=== PATIENT | female | born 1990 | race Caucasian/White ===

== ENCOUNTER 2023-12-06 21:12 | Emergency (ER) | payer OTHER, SELFPAY ==
[2023-12-06] MEDS: ZOFRAN 4 MG IV (21:42)
[2023-12-06 21:43] LABS: % Basophils 0.3 % (0-2); % Eosinophils 1.4 % (0-6); % Immature Granulocytes 0.2 % (0-0.5); % Lymphocytes 34.3 % (20.5-51.1); % Monocytes 5.5 % (1.7-9.3); % Neutrophils 58.3 % (42.2-75.2); Absolute Eosinophils 0.1 10^3/uL (0-0.7); Absolute Lymphocytes 2.9 10^3/uL (1.2-3.4); Absolute Monocytes 0.5 10^3/uL (0.1-0.6); Hematocrit 39.9 % (37.0-47.0); Hemoglobin 14.1 g/dL (12.0-16.0); Mean Corp Hgb Conc. 35.3 g/dL (33.0-37.0); Mean Corpuscular Hgb 30.9 pg (27.0-31.0); Mean Corpuscular Volume 87.5 fL (81.0-99.0); Mean Platelet Volume 8.6 fL (7.4-10.4); Nucleated Red Blood Cells % 0 %; Platelet Count 307 10^3/uL (130-400); Red Blood Cell Count 4.56 10^6/uL (4.20-5.40); Red Cell Dist. Width 12.1 % (11.5-14.5); White Blood Cell Count 8.6 10^3/uL (4.8-10.8)
[2023-12-06] MEDS: TORADOL 15 MG IV (21:43)
[2023-12-06 21:55] LABS: HCG, Serum Qualitative Screen Negative
[2023-12-06 22:00] LABS: ALT (SGPT) 16 U/L (0-35); AST (SGOT) 20 U/L (14-36); Albumin 4.3 g/dl (3.5-5.0); Alkaline Phosphatase 54 U/L (38-126); Blood Urea Nitrogen 12 mg/dl (7-17); Calcium 10.1 mg/dl (8.4-10.2); Carbon Dioxide 26 mmol/L (22-30); Chloride 98 mmol/L (98-107); Glucose 164 mg/dl (70-99); Sodium 135 mmol/L (135-145); Total Bilirubin 0.5 mg/dl (0.2-1.3); Total Protein 6.9 g/dl (6.3-8.2); eGFR > 60.00
[2023-12-06 22:02] LABS: Lipase 150 U/L (23-300)
[2023-12-07] MEDS: MORPHINE SULFATE 4 MG IV (00:01)
--- NOTE | 2023-12-07 00:48 | ED.GENMED ---
History of Present Illness
<EDU Land - Last Filed: 12/07/23 05:07>
General
Chief Complaint: Abdominal Pain
Source: patient
Exam Limitations: none
Time Seen by Provider: 12/06/23 23:49
Travel History
Have you had any contact with someone who has COVID-19?: No
Do you have any symptoms of coronavirus? Fever > 100 degrees, chills, cough, shortness of breath, sore throat, loss of taste or smell, muscle aches, or headache?: No
History of Present Illness
History of Present Illness:
32 yo female presenting for RUQ abdominal pain. States this pain started tonight and radiates to the back. Pain rated as 10/10 before pain meds were given. States she has been dealing with bloating, nausea, and generalized abdominal pain for a
couple months. She is feeling more nauseous today and vomited once in waiting room. States had an upper endoscopy earlier this week, is awaiting results.
Review of Systems
<EDU Land - Last Filed: 12/07/23 05:07>
Review of Systems
Allergies reviewed?: Yes
Constitutional: Reports no symptoms
EENT: Reports no symptoms
Respiratory: Reports no symptoms
Cardiac: Reports no symptoms
ABD/GI: Reports abdominal pain, nausea and vomiting
Phy Exam
<EDU Land - Last Filed: 12/07/23 05:07>
General Physical Exam
General Presentation: mild distress
General age: appears stated age
General Skin: warm
General Habitus: normal
General Mental: alert
General Hydration: appears well hydrated
Cardiovascular Exam
Cardiovascular Exam: regular rate/rhythm
Pulmonary Exam
Pulmonary Exam: lungs clear
Gastrointestinal Exam
Gastrointestinal Exam: guarding and tender (+ culp's sign)
Course
<EDU Land - Last Filed: 12/07/23 05:07>
Orders/Labs/Results
Orders:
Orders
12/06/23 21:25
Test Result ONCE
12/06/23 21:30
Ketorolac [Toradol] 15 mg .ROUTE .STK-MED ONE
Ondansetron Injectable [Zofran] 4 mg .ROUTE .STK-MED ONE
12/06/23 21:31
Complete Blood Count/With Diff Urgent
Comprehensive Metabolic Panel Urgent
HCG, Serum Qualitative Screen Urgent
Lipase Urgent
12/06/23 21:41
Ondansetron Injectable [Zofran] 4 mg IV NOW STA
12/06/23 21:42
Ketorolac [Toradol] 15 mg IV NOW STA
12/06/23 23:49
Morphine Sulfate 4 mg IV NOW STA
US Abdomen Complete/Upper Urgent
Comment:
Reason For Exam: ruq pain
12/06/23 23:50
Urinalysis Reflex To Culture Urgent
Date Specimen was Collected: 12/07/23
Time Specimen was Collected: 01:32
12/07/23 01:11
Mag Hydrox/Al Hydrox/Simeth [Maalox] 30 ml Phenobarb/Hyoscy/Atropine/Scop [] 10 ml Viscous Lidocaine 2% [Xylocaine Viscous Cup] 10 ml PO NOW
12/07/23 01:26
Mag Hydrox/Al Hydrox/Simeth [Maalox] 30 ml .ROUTE .STK-MED ONE
Phenobarb/Hyoscy/Atropine/Scop [] 10 ml .ROUTE .STK-MED ONE
12/07/23 01:27
Viscous Lidocaine 2% [Xylocaine Viscous Cup] 15 ml .ROUTE .STK-MED ONE
12/07/23 01:38
Urine Microscopic Reflex Cult Urgent
Urine Culture Urgent
ROMELIA Source: U
Specimen Description:
Date Specimen was Collected: 12/07/23
Time Specimen was Collected: 01:32
12/07/23 01:53
CT Abd/pelvis W Iv Cont Urgent
Comment:
Reason For Exam: right upper abd pain
12/07/23 03:50
Acetaminophen [Tylenol] 1,000 mg PO NOW STA
Abnormal Lab Results
12/06/23 12/07/23
21:31 01:38
Glucose 164 H mg/dl
(70-99)
Ur Occult Blood Reflex 4+ A
(Negative)
Urine RBC 30-40 A /HPF
(0-2)
Urine Bacteria (Reflex) Moderate A
(Negative)
12/06/23 21:31
12/06/23 21:31
Vital Signs
Initial and Last Documented VS:
Initial Vital Signs
Temp Pulse Resp Pulse Ox
97.7 F 91 20 100
12/06/23 21:20 12/06/23 21:20 12/06/23 21:20 12/06/23 21:20
Last Documented Vital Signs
Temp Pulse Resp BP Pulse Ox
97.7 F 54 20 129/81 99
12/06/23 21:20 12/07/23 04:41 12/07/23 04:41 12/07/23 04:41 12/07/23 04:41
Dwaynelt;Gilmar Lugo, - Last Filed: 12/07/23 04:27>
Orders/Labs/Results
Orders:
Orders
12/06/23 21:25
Test Result ONCE
12/06/23 21:30
Ketorolac [Toradol] 15 mg .ROUTE .STK-MED ONE
Ondansetron Injectable [Zofran] 4 mg .ROUTE .STK-MED ONE
12/06/23 21:31
Complete Blood Count/With Diff Urgent
Comprehensive Metabolic Panel Urgent
HCG, Serum Qualitative Screen Urgent
Lipase Urgent
12/06/23 21:41
Ondansetron Injectable [Zofran] 4 mg IV NOW STA
12/06/23 21:42
Ketorolac [Toradol] 15 mg IV NOW STA
12/06/23 23:49
Morphine Sulfate 4 mg IV NOW STA
US Abdomen Complete/Upper Urgent
Comment:
Reason For Exam: ruq pain
12/06/23 23:50
Urinalysis Reflex To Culture Urgent
Date Specimen was Collected: 12/07/23
Time Specimen was Collected: 01:32
12/07/23 01:11
Mag Hydrox/Al Hydrox/Simeth [Maalox] 30 ml Phenobarb/Hyoscy/Atropine/Scop [] 10 ml Viscous Lidocaine 2% [Xylocaine Viscous Cup] 10 ml PO NOW
12/07/23 01:26
Mag Hydrox/Al Hydrox/Simeth [Maalox] 30 ml .ROUTE .STK-MED ONE
Phenobarb/Hyoscy/Atropine/Scop [] 10 ml .ROUTE .STK-MED ONE
12/07/23 01:27
Viscous Lidocaine 2% [Xylocaine Viscous Cup] 15 ml .ROUTE .STK-MED ONE
12/07/23 01:38
Urine Microscopic Reflex Cult Urgent
Urine Culture Urgent
ROMELIA Source: U
Specimen Description:
Date Specimen was Collected: 12/07/23
Time Specimen was Collected: 01:32
12/07/23 01:53
CT Abd/pelvis W Iv Cont Urgent
Comment:
Reason For Exam: right upper abd pain
12/07/23 03:50
Acetaminophen [Tylenol] 1,000 mg PO NOW STA
Abnormal Lab Results
12/06/23 12/07/23
21:31 01:38
Glucose 164 H mg/dl
(70-99)
Ur Occult Blood Reflex 4+ A
(Negative)
Urine RBC 30-40 A /HPF
(0-2)
Urine Bacteria (Reflex) Moderate A
(Negative)
12/06/23 21:31
12/06/23 21:31
Vital Signs
Initial and Last Documented VS:
Initial Vital Signs
Temp Pulse Resp Pulse Ox
97.7 F 91 20 100
12/06/23 21:20 12/06/23 21:20 12/06/23 21:20 12/06/23 21:20
Last Documented Vital Signs
Temp Pulse Resp BP Pulse Ox
97.7 F 54 20 129/81 99
12/06/23 21:20 12/07/23 04:41 12/07/23 04:41 12/07/23 04:41 12/07/23 04:41
<EDU Land - Last Filed: 12/07/23 05:07>
MDM/Problems Addressed
Differential Diagnosis Includes:
cholecystitis
- positive culp's sign
- US
cholelithiasis
choledocholithiasis
-no jaundice, no fever
<EDU Land - Last Filed: 12/07/23 05:07>
*Critical Care Note
Total Time (30-74mins, 75-104mins- exclusive of procedures): Not Applicable
<Gilmar Lugo DO - Last Filed: 12/07/23 04:27>
Update Note
Update Note:
Ultrasound abdomen complete
IMPRESSION:
No acute findings.
Numerous gallstones within the gallbladder lumen
No appreciable gallbladder wall thickening or pericholecystic fluid
Negative sonographic Culp's sign per report(though medicated)
No ductal dilatation
Visualized pancreas and liver appear normal
Bilateral kidneys appear normal and are symmetric
Normal size spleen
No appreciable free fluid
CT abdomen and pelvis with contrast
IMPRESSION:
Technically limited by respiratory motion
No appreciable acute intra-abdominal pathology
No findings to suggest etiology for right upper abdominal pain
Report faxed directly to ER at 3:25 AM ET
12/07/2023 0346 AM: Reviewed all lab work, ultrasound, and CAT scan results with her family. Patient had given family a copy of the preliminary ultrasound report that showed gallstones. They wanted to know if the gallstones are causing her issues.
I stated that since there is no appreciable gallbladder wall thickening or pericholecystic fluid, and negative sonographic Culp sign, it is possible that her gallstone moved into the gallbladder neck and cause some pain. But at time of ultrasound
there is no stone in the gallbladder neck, but patient still having pain. lab work normal. Patient had endoscopy at an outside endoscopy center in [place]. They are unsure of the results but the prescribed her ciprofloxacin. They stated that
her breath test was 'positive '. They also reported to me that the doctor told him that 3 biopsies were taken. They do not have the results of the endoscopy other than the verbal results given at the conclusion of the exam. It is possible that
she is possible for H. pylori given a positive breath test. She may be treated for that. Is possible that she has concurrent ulcers.
Patient refuses Bentyl. 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 It is possible that this could be musculoskeletal abdominal pain. It could be intermittent biliary colic, it could be constipation.
Patient does have good follow-up with GI and PCP.
12/07/2023 0414 AM: Patient now requesting Bentyl. I did give her a prescription.
ED Attending Note
<EDU Land - Last Filed: 12/07/23 05:07>
-
Portions of this chart may have been created with voice recognition software.� Occasional wrong word or��sound alike� substitutions may have occurred due to the inherent limitations of voice recognition software.
<Gilmar Lugo DO - Last Filed: 12/07/23 04:27>
ED Attending Note
Patient seen and examined by attending physician: Yes
I performed the substantive portion of visit, reviewed & personally made and approve the management plan that is documented in note by myself or ROMEO.: Yes
ED Attending Note:
Pleasant 32-year-old female presents with right upper quadrant and generalized abdominal pain that has been going on for several weeks. She states that tonight the pain worsened. She has been followed by GI and had endoscopy recently which was
negative. They have been attempting to determine the etiology of this abdominal pain without success. Today she felt more nauseated and had 1 episode of vomiting while in the waiting room. Denies fever, chills, chest pain, or shortness of breath.
Patient was seen in conjunction with the PA student. I have reviewed and agree with the history and treatment plan presented. On my independent physical exam, patient is awake, alert, and oriented x3, moderate acute distress. Heart is regular
rate and rhythm. Lungs are clear to auscultation bilaterally without wheezes rales or rhonchi. Abdomen is soft with right upper quadrant tenderness to palpation. Good bowel sounds heard.
Discharge Plan
Departure
Patient Disposition: Home (Routine Discharge)
Date of Disposition: 12/07/23
Time of Disposition: 03:58
Patient with high blood pressure during this ER visit?: No
Condition: Good
Discharge Problem:
Abdominal pain
Instructions: Gallstones (DC), Abdominal Pain
Prescriptions:
New
pantoprazole 40 mg tablet,delayed release (DR/EC)
40 mg PO DAILY Qty: 10 0RF
sucralfate [Carafate] 100 mg/mL suspension
10 ml PO QID Qty: 200 0RF
dicyclomine 20 mg tablet
20 mg PO BID Qty: 10 0RF
Referrals:
Mello Peterson MD [Family Provider] -
Stand Alone Forms: Return to Work
Activity Restrictions/Additional Instructions:
It was a pleasure meeting you and taking part in your care. We hope for your continued healing and wellness.
Please read discharge instructions in their entirety. However, they are for general education and may not describe your exact diagnosis at discharge. Information on your ER visit and medical conditions were discussed with you along with appropriate
follow up information...
If indicated, please take your medications as instructed and indicated on discharge paperwork.
Please schedule a follow up appointment as directed. Call to schedule an appointment
Please return to the emergency department with ANY change in, persisting, or worsening of symptoms. If any of your symptoms do not improve, or persist, or become more severe within 6-12 hours, please return to the emergency department for further
care.
Please return to the emergency department if you develop a headache, neck pain/stiffness, fever greater than 100.4F, chest pain, shortness of breath, persistent nausea, vomiting, slurred speech, difficulty walking, numbness/tingling, weakness, signs
of infection or any other symptoms that are worrisome to you.
If you have any questions or concerns please do not hesitate to call the Hospital at or E-mail me directly at [email or web address]
Interventions
Interventions:
*Risk Screen - Suicide Last Done: 12/06/23 21:20
*General Assessment Last Done: 12/06/23 21:20
*Neglect/Abuse Screening Last Done: 12/06/23 21:20
ED- Fall Risk Assessment Last Done: 12/07/23 04:41
*ED COVID-19 Vaccine History Last Done: 12/06/23 21:20
*Nursing Disposition Last Done: 12/07/23 04:41
DR-[id number]-[id number] Assessment Last Done: 12/07/23 00:15
Discharge Date and Time
Discharge Date/Time: 12/07/23 04:43
Print Language: MACEDONIAN
[2023-12-07] MEDS: MAALOX 45 PO (01:28)
[2023-12-07 01:45] LABS: Urine Albumin Trace (Neg - Trace); Urine Bilirubin Negative (Negative); Urine Character Cloudy (Clear); Urine Color Yellow; Urine Glucose Negative (Negative); Urine Ketone Negative (Negative); Urine Leukocyte Negative (Negative); Urine Nitrite Negative (Negative); Urine Occult Blood 4+ (Negative); Urine Specific Gravity 1.015 (<1.030); Urine Urobilinogen 1+ (Neg - 1+)
[2023-12-07 02:00] LABS: Urine Squamous Cell >30 /LPF (Few)
[2023-12-07 02:02] LABS: Urine Amorphous Seen; Urine Bacteria Moderate (Negative); Urine Red Blood Cell 30-40 /HPF (0-2)
[2023-12-07] MEDS: TYLENOL 1000 MG PO (04:02)
[2023-12-07 04:41] VITALS: BP 129/81
== END 2023-12-07 04:43 | disposition home or self-care (01) ==
LOC: EMR 21:12
PROVIDERS: Emergency Medicine; EMERGENCY PHYSICIAN Student in an Organized Health Care Education/Training Program; FAMILY PHYSICIAN Internal Medicine
DX: R10.11 Right upper quadrant pain (principal)
CPT/HCPCS: 99285; 96374; 96375 ×2; 74177; 76700; 80053; 81003; 81015; 83690; 84703; 85025; 87086; Q9967